=== PATIENT | female | born 1980 | race Caucasian/White ===

== ENCOUNTER 2019-02-07 13:52 | Emergency (ER) | payer OTHER ==
[~2019-02-07] VITALS: Ht 162.6 cm; Wt 68.0 kg
[2019-02-07] MEDS ORDERED: DEXAMETHASONE 10 MG/ML 1 ML INJ IM STA (14:01)
[2019-02-07] MEDS ORDERED: ALBUTEROL 0.083% (NEB) 2.5 MG/3 ML AMP NEB STA (14:01)
[2019-02-07] MEDS ORDERED: IPRATROPIUM (NEB) 0.5 MG/2.5 ML AMP NEB STA (14:01)
--- NOTE | 2019-02-07 14:04 | ERD ---
ER Documentation Chief Complaint Chief Complaint Asthma HPI 38-year-old female, with history of asthma, presents the emergency department, complaining of 3 days with cough, wheezing, subjective fever and general malaise. The patient has been using her inhaler without improvement of the symptoms. Currently, the patient denies chest pain, no palpitations, no rashes, no headache. ROS All systems reviewed and are negative except as per history of present illness. Medications Home Meds Active Scripts Nebulizer (Compact Compressor Nebulizer) 1 Each Each, EACH MC, #1 Prov:JIE ALLEN MD 02/07/19 Amoxicillin* (Amoxicillin*) 500 Mg Cap, 500 MG PO TID for 7 Days, CAP Prov:JIE ALLEN MD 02/07/19 Albuterol Sulfate* (Proair HFA*) 8.5 Gm Hfa.aer.ad, 2 PUFF INH Q4H PRN for WHEEZING AND SOB, #1 INHALER Prov:JIE ALLEN MD 02/07/19 Albuterol Sulfate* (Albuterol Sulfate* Neb) 0.083%-3 Ml Neb, 2.5 MG NEB Q4 PRN for SHORTNESS OF BREATH, #30 EA Prov:JIE ALLEN MD 02/07/19 Prednisone* (Prednisone*) 20 Mg Tab, 60 MG PO DAILY for 5 Days, TAB Prov:JIE ALLEN MD 02/07/19 Allergies Allergies: Coded Allergies: No Known Allergy (Unverified , 02/07/19) FmHx Family History: No diabetes, No coronary disease Physical Exam Vitals Vital Signs Date Temp Pulse Resp B/P (MAP) Pulse Ox O2 O2 Flow FiO2 Time Delivery Rate 02/07/19 98.2 89 17 125/82 98 Room Air 15:52 (96) 02/07/19 100 28 93 21 14:13 02/07/19 98.1 88 22 159/87 97 14:05 (111) Physical Exam Patient alert, oriented, mild respiratory distress with cough. HEAD: Normocephalic, atraumatic. EYES: PERRLA, EOMI, Sclera and conjunctiva appear normal. NOSE: clear rhinorrhea . EARS: Canals clear, tympanic membranes WNL. MOUTH: normal lips and tongue, no oral lesions. THROAT: Erythema of the oropharynx, no tonsillar exudates. NECK: Supple, No lymphadenopathy. Full ROM without pain or tenderness. HEART: RRR, no rubs, murmurs, clicks or gallops. LUNGS: Bilateral inspiratory and expiratory wheezing to auscultation. ABDOMEN: Soft, non-tender without masses or hepatosplenomegaly. EXTREMITIES: No edema bilaterally. BACK: Full ROM, no deformity, normal back exam NEURO: Cranial nerves grossly intact, no motor or sensory deficit SKIN: No rashes, no petechia Results 24 hrs Current Medications Medications Dose Sig/Shantel Start Time Status Last (Trade) Ordered Route PRN Stop Time Admin Dose Reason Admin Albuterol 5 mg ONCE STAT 02/07/19 DC 02/07/19 (Proventil NEB 14:01 14:12 0.083% (Neb)) 02/07/19 14:08 Ipratropium 0.5 mg ONCE STAT 02/07/19 DC 02/07/19 Elrosa NEB 14:01 14:12 (Atrovent 02/07/19 14:08 0.02% (Neb)) 10 mg ONCE STAT 02/07/19 DC 02/07/19 Dexamethasone IM 14:01 14:13 (Decadron) 02/07/19 14:08 Patient: GABRIELLE HODGES : 1980 Age: 38 Sex: F MR #: [id number] DOS: 02/07/19 1401 Ordering MD: JIE ALLEN MD Location: [facility] Room/Bed: PROCEDURE: XR Chest. CLINICAL INDICATION: Asthma TECHNIQUE: PA and lateral views of the chest were obtained COMPARISON: None FINDINGS: The heart and mediastinum are within normal limits. The lungs are clear. There is no pleural effusion or pneumothorax. The bones and soft tissues are unremarkable. RPTAT: AA IMPRESSION: No acute disease. Procedures/MDM At the time of discharge, vital signs stable, no respiratory distress. Differential diagnosis include but not limited to: Respiratory infection bacterial/viral/fungal. Asthma/COPD, pneumonitis, allergies, GERD. Less likely foreign body aspiration, cardiac related, aspiration pneumonia, malignancy. Physical examination and clinical presentation consistent most likely with acute asthma exacerbation with early superimposed bacterial infection. During the ED course the patient remained stable, received a nebulized treatment and steroids in the ED presenting overall improvement of the symptoms, no new complaints. Clinical impression discussed with the patient who agrees with management. The patient is stable to be treated outpatient and will be discharged home. Some side effects of prescribed medications (headache, rash, nausea, vomiting, diarrhea, drowsiness, habituation, bleeding, hypertension, interactions with other medications) were reviewed. The patient was instructed to follow up with the primary care provider in the next 48h. If symptoms persist, worsen or new symptoms develop, then patient should return to the ED immediately. Disclaimer: Inadvertent spelling and grammatical errors are likely due to EHR/dictation software use and do not reflect on the overall quality of patient care. Also, please note that the electronic time recorded on this note does not necessarily reflect the actual time of the patient encounter. Departure Diagnosis: Primary Impression: Asthma with acute exacerbation Condition: Stable Additional Instructions: Muchas david por [facility] para navarro servicio. Esperamos que en navarro visita a la david de emergencia navarro problema medico haya sido solucionado y que se sienta mucho mejor. Para estar seguros que navarro mejoria sigue en proceso, le pedimos el favor de hacer steven nikolay de seguimiento medico con navarro doctor primario en los proximos 2-4 kathleen. Lleve con usted estos documentos y las medicinas recetadas. Si natalie sintomas empeoran, NO SE ESPERE, por favor regrese a david de emergencia INMEDIATAMENTE. En wander que usted no tenga un mdico de atencin primaria: Llame al mdico o clnica comunitaria de referencia que aparece abajo brandon las horas de consultorio para hacer steven nikolay para que le vean. CLINICAS: [facility] [phone] [facility] [phone] [facility] [phone] [place] [id number] [phone] [address] [facility] [phone] [id number] [facility] [phone] JIE RUFFIN MD Feb 07, 2019 14:04
[2019-02-07 14:05] VITALS: Ht 162.6 cm; Wt 68.0 kg
[2019-02-07] MEDS ORDERED: PRED20TA PO (15:39)
[2019-02-07] MEDS ORDERED: ALBU8.5H8 INH (15:39)
[2019-02-07] MEDS ORDERED: AMOX500C2 PO (15:39)
[2019-02-07] MEDS ORDERED: ALBU2.5V3 NEB (15:39)
[2019-02-07] MEDS ORDERED: NEBU1KIT3 MC (15:47)
[2019-02-07 15:52] VITALS: BP 125/82; PULSE 89; RESP 17
== END 2019-02-07 15:53 | disposition home or self-care (01) ==
LOC: FTE 13:52
DX: J45.901 Unspecified asthma with (acute) exacerbation (principal)
CPT/HCPCS: 71046; 94664; 96372; J1100; Z7502; Z7610